=== PATIENT | female | born 1945 | race Two or more races ===

== ENCOUNTER 2018-09-20 05:05 | Day surgery (SDC) | payer MEDICARE, OTHER ==
[~2018-09-20] VITALS: Ht 160 cm; Wt 74.9 kg
--- NOTE | 2018-09-20 05:00 | NUR ---
ADMISSION NOTES: PT CAME TO THE UNIT, AMBULATORY, ACCOMPANIED BY FAMILY. PT FOR DAY SURGERY. ASSISTED TO THE ROOM, CHANGED INTO HOSPITAL GOWN. ORIENTED PT TO UNIT POLICY AND HOURLY ROUNDING, USE OF CALL LIGHT. ALL CONSENT FOR PROCEDURE SIGNED BY PATIENT. ADMISSION INTERVIEW COMPLETED. STARTED IV ACCESS ON LEFT FA USING G 20, PLACED ON HL. VS TAKEN AND RECORDED. MRSA COMPLETED. PT BEEN NPO SINCE MIDNIGHT. PT FOR DIAGNOSTIC AND OPERATIVE ARTHROSCOPY OF RIGHT SHOULDER, ROTATOR CUFF REPAIR, BICEP AND TENODESIS, POSSIBLE ARTHROTOMY BY DR RANI CHEN. SAFETY PRECAUTIONS FOR FALL INITIATED, CALL LIGHT IN REACH, AWAITING SEATING CAPTAIN, SCHED OF SX IS 0630 AM.
[2018-09-20 05:50] VITALS: BP 139/79
[2018-09-20] MEDS ORDERED: ANESTHESIA TRAY IN PYXIS 1 EA TRAY MC ONE (05:56)
[2018-09-20] MEDS ORDERED: EPINEPHRINE (1:1000) 1 MG/ML AMPUL ONE (05:56)
[2018-09-20] MEDS ORDERED: LIDOCAINE HCL/PF 1% 30 ML SDV ONE (05:56)
[2018-09-20 06:01] VITALS: BP 139/79
[2018-09-20] MEDS ORDERED: FENTANYL PF 250MCG/5ML AMPUL ONE (06:06)
[2018-09-20] MEDS ORDERED: METOCLOPRAMIDE HCL 10 MG/2 ML VIAL ONE (06:07)
[2018-09-20] MEDS ORDERED: BUPIVACAINE 0.25% 75 MG/30 ML VIAL ONE (06:08)
[2018-09-20] MEDS ORDERED: FAMOTIDINE/PF INJ 20 MG/2 ML VIAL IV ONE (06:08)
[2018-09-20] MEDS ORDERED: ROCURONIUM BROMIDE 50 MG/5 ML ONE (06:09)
[2018-09-20] MEDS ORDERED: IBUP-1957 PO (06:19)
[2018-09-20] MEDS ORDERED: LISI10TA5 PO (06:19)
[2018-09-20] MEDS ORDERED: BUPR-88 PO (06:19)
[2018-09-20] MEDS ORDERED: CYCL5TAB PO (06:19)
[2018-09-20] MEDS ORDERED: ATOR40TA PO (06:19)
[2018-09-20] MEDS ORDERED: LORA0.5T PO (06:19)
--- NOTE | 2018-09-20 06:21 | NUR ---
RN NOTES: PT WENT TO OR VIA HOSPITAL BED, ACCOMPANIED BY OR STAFF.
--- NOTE | 2018-09-20 06:26 | NUR ---
RN CLOSING NOTES: PT CURRENTLY IN OR. WILL GIVE REPORT TO DY RN FOR CONTINUITY OF CARE.
--- NOTE | 2018-09-20 08:16 | NUR ---
MS RN NOTES PATIENT STILL IN OR.
[2018-09-20] MEDS ORDERED: HYDROCODONE/APAP 5/325MG 1 EACH TABLET PO PRN (10:30)
[2018-09-20] MEDS: HYDROCODONE/APAP 10/325MG 1 EA TABLET PO PRN ×2 (10:36→14:58)
--- NOTE | 2018-09-20 11:00 | NUR ---
MS RN NOTES PATIENT WAS SEEN BY BOUBACAR RUTLEDGE ORDERS TO GIVE MORPHINE 2MG IV [id number] NEEDED AND DISCHARGE PATIENT WHEN PAIN IS CONTROLLED.
[2018-09-20] MEDS ORDERED: MORPHINE SULFATE INJ 2 MG/ML DISP.SYRIN IV PRN (11:30)
[2018-09-20 12:00] VITALS: BP 126/71
[2018-09-20 15:41] VITALS: BP 129/64
--- NOTE | 2018-09-20 15:50 | NUR ---
MS RN NOTES PATIENT DISCHARGED HOME WITH IN STABLE CONDITION. PATIENT ALERT, ORIENTED X3. AMBULATORY. RIGHT ARM IN A SLING. DISCHARGE INSTRUCTIONS PROVIDED TO PATIENT AND . PATIENT ALREADY HAS SCHEDULED APPOINTMENT WITH DR. SARAVIA. AWARE OF ALL ABNORMAL LABS. PATIENT IN FOR SAME DAY SURGERY. PERIPHERAL IV REMOVED, ID BAND REMOVED. PATIENT ALREADY HAS MEDICATIONS PRESCRIBED BY DR. SARAVIA. PATIENT ESCORTED TO CAR BY UROLOGIC NURSE.
== END 2018-09-20 16:00 | disposition home or self-care (01) ==
LOC: DS 05:05 → MED 05:07 → UNDOADMIN 05:07 → UNDODISIN 15:52 → DS 16:00
PROVIDERS: ATTEND Specialist
DX: M75.101 Unspecified rotator cuff tear or rupture of right shoulder, not specified as traumatic (principal); M24.011 Loose body in right shoulder; M65.811 Other synovitis and tenosynovitis, right shoulder; I10 Essential (primary) hypertension; E78.00 Pure hypercholesterolemia, unspecified; F41.9 Anxiety disorder, unspecified; Z79.899 Other long term (current) drug therapy; Z91.018 Allergy to other foods
CPT/HCPCS: 29824; 29827; 29828; 87081; 88304; 88311; A4217; C1713; J0171; J0690; J2270; J2405; J2704; J2710; J2765; J3010; J3490 ×4; G0378

== ENCOUNTER 2020-10-25 10:45 | Outpatient (CLI) | payer MEDICARE, OTHER ==
[~2020-10-25 10:45] MED LIST: ATOR40TA PO; BUPR-78 PO; CYCL5TAB PO; IBUP-1957 PO; LISI10TA29 PO; LORA0.5T PO
== END 2020-10-25 23:59 | disposition home or self-care (01) ==
LOC: LAB 10:45
PROVIDERS: ATTEND Specialist
DX: Z01.812 Encounter for preprocedural laboratory examination (principal); Z20.822 Contact with and (suspected) exposure to COVID-19
CPT/HCPCS: C9803; U0003

== ENCOUNTER 2020-11-01 05:07 | Inpatient (IN) | payer MEDICARE, OTHER ==
[~2020-11-01] VITALS: Ht 165.1 cm; Wt 81.6 kg
[2020-11-01] MEDS ORDERED: BUPIVACAINE 0.5 % PF 150 MG/30 ML VIAL ONE (06:07)
[2020-11-01] MEDS ORDERED: BACITRACIN 50000 UNITS/VIAL ONE (06:07)
[2020-11-01] MEDS ORDERED: ANESTHESIA TRAY IN PYXIS 1 EA TRAY MC ONE (06:07)
[2020-11-01] MEDS ORDERED: HYDROMORPHONE INJ 2 MG/ML DISP.SYRIN ONE (06:33)
[2020-11-01] MEDS ORDERED: FENTANYL PF 100MCG/2ML AMPUL ONE (06:33)
[2020-11-01] MEDS ORDERED: ROCURONIUM BROMIDE 50 MG/5 ML ONE ×2 (06:34→07:47)
[2020-11-01] MEDS ORDERED: TRANEXAMIC ACID 3,000 MG in SODIUM CHLORIDE IRRIG SOLUTION 70 ML IR ONE (07:00)
[2020-11-01] MEDS ORDERED: DESFLURANE 240 ML BOTTLE IH ONE (08:16)
[2020-11-01] MEDS ORDERED: SEVOFLURANE 250 ML BOTTLE IH ONE (08:16)
[2020-11-01] MEDS ORDERED: BUPIVACAINE 0.25% 75 MG/30 ML VIAL ONE (08:47)
[2020-11-01] MEDS ORDERED: BISACODYL SUPP (10 MG) 10 MG/SUPP.RECT SUPP.RECT RC PRN (09:00)
[2020-11-01] MEDS ORDERED: ACETAMINOPHEN 325 MG TABLET PO PRN (09:00)
[2020-11-01] MEDS ORDERED: HYDROCODONE/APAP 5/325MG TABLET PO PRN (09:00)
[2020-11-01] MEDS ORDERED: SENNOSIDES 8.6 MG TABLET PO PRN (09:00)
[2020-11-01] MEDS ORDERED: DOCUSATE SODIUM 250 MG CAPSULE PO PRN (09:00)
[2020-11-01] MEDS ORDERED: ONDANSETRON HCL/PF 4 MG/2 ML VIAL IV PRN ×2 (09:30→11:00)
[2020-11-01] MEDS ORDERED: ZOLPIDEM TARTRATE 5 MG TABLET PO PRN (09:30)
[2020-11-01] MEDS ORDERED: IV D5/0.45 NACL 1,000 ML IV PRN (09:30)
[2020-11-01] MEDS ORDERED: LORAZEPAM 1 MG TABLET PO ONE (10:37)
[2020-11-01] MEDS ORDERED: MAGNESIUM HYDROXIDE 30 ML UDC PO PRN (11:00)
[2020-11-01] MEDS ORDERED: MORPHINE SULFATE INJ 4 MG/ML DISP.SYRIN IM PRN ×2 (11:00)
[2020-11-01] MEDS ORDERED: CLONIDINE HCL 0.1 MG TABLET PO PRN (11:00)
[2020-11-01] MEDS ORDERED: oxyCODONE IR immediate release 5 MG PO PRN (11:00)
[2020-11-01] MEDS ORDERED: CYCLOBENZAPRINE 10 MG TABLET PO PRN (11:00)
[2020-11-01] MEDS ORDERED: MAG HYDROX/AL HYDROX/SIMETH 30 ML UDC PO PRN (11:00)
[2020-11-01] MEDS ORDERED: LORAZEPAM 1 MG TABLET PO PRN (11:00)
[2020-11-01] MEDS ORDERED: diphenhydrAMINE HCL 25 MG CAPSULE PO PRN (11:00)
--- NOTE | 2020-11-01 11:00 | NUR ---
RN OPENING NOTE PATIENT AWAKE IN BED. A/O X3 AND SPEAKING SOME IRANIAN. NO COMPLAINT OF PAIN OR NAUSEA. CURRENTLY ON 2L O2 VIA NC. NO SOB OR RESPIRATORY DISTRESS PRESENT. V/S STABLE. R SHOULDER INCISION PRESENT. NO EDEMA PRESENT. SELF AMBULATORY WITH BATHROOM PRIVILEGES. HL PRESENT ON L FA 22G AND FLUSHES WELL. SAFETY MEASURES IN PLACE. SIDE RAILS RAISED. BED LOWERED. CALL LIGHT WITHIN REACH. WILL CONTINUE TO MONITOR.
[2020-11-01] MEDS: buPROPion SR 150 MG TABLET.ER PO SCH (11:21)
[2020-11-01 12:00] VITALS: BP 124/71
[2020-11-01] MEDS ORDERED: LORA-259 PO (14:12)
[2020-11-01] MEDS ORDERED: GLIP10TA11 PO (14:12)
[2020-11-01] MEDS ORDERED: ATOR40TA PO (14:12)
[2020-11-01] MEDS: oxyCODONE IR immediate release 5 MG PO PRN ×3 (14:20→23:00)
[2020-11-01] MEDS: ANCEF 1 GM/50 ML D5W IV SCH ×2 (14:23→22:48)
[2020-11-01 16:00] VITALS: BP 109/63
[2020-11-01] MEDS: DOCUSATE SODIUM 100 MG CAPSULE PO SCH (16:46)
[2020-11-01] MEDS ORDERED: oxyCODONE IR immediate release 5 MG PO ONE (17:30)
--- NOTE | 2020-11-01 18:28 | NUR ---
RN CLOSING NOTE PATIENT AWAKE IN BED. A/O X3 AND SPEAKING SOME SUDANESE. NO COMPLAINT OF PAIN OR NAUSEA. CURRENTLY ON 2L O2 VIA NC. NO SOB OR RESPIRATORY DISTRESS PRESENT. V/S STABLE. R SHOULDER INCISION PRESENT. NO EDEMA PRESENT. SELF AMBULATORY WITH BATHROOM PRIVILEGES. HL PRESENT ON L FA 22G AND FLUSHES WELL. ROUTINE MEDS GIVEN SAFETY MEASURES IN PLACE. SIDE RAILS RAISED. BED LOWERED. CALL LIGHT WITHIN REACH. REPORT TO BE GIVEN TO NIGHT NURSE FOR MARCO ANTONIO.
--- NOTE | 2020-11-01 18:29 | NUR ---
RN NOTE PATIENT TAKEN OFF OF 2L NC. NO SOB OR RESPIRATORY DISTRESS PRESENT. O2 SAT OF 99%. WILL CONTINUE TO MONITOR.
--- NOTE | 2020-11-01 19:45 | NUR ---
MS RN NOTES PATIENT IN BED A/O X4. ABLE TO MAKE NEEDS KNOWN. L. FA RUNNING D5W 1/2 NS@ 125 ML/HR. NO S/S OF DISTRESS. NO C/O OF PAIN AT THE MOMENT. SAFETY IN PLACE: BED IN LOWEST, LOCKED POSITION; CALL LIGHT WITHIN REACH. BOARD UPDATED. WILL CONTINUE TO MONITOR.
[2020-11-01 20:00] VITALS: BP 118/52
[2020-11-01] MEDS: FAMOTIDINE (20 MG) 20 MG TABLET PO SCH (20:40)
--- NOTE | 2020-11-01 23:00 | NUR ---
MS RN NOTES PATIENT C/O 6/10 PAIN IN R. SHOULDER VIA ADULT PAIN SCALE. GIVEN OXYCODONE 10 MG PRN. WILL REASSESS.
[2020-11-01 23:37] VITALS: BP 118/52
--- NOTE | 2020-11-02 05:07 | NUR ---
MS RN NOTES PATIENT REPORTS 9/10 PAIN. GIVEN IM MORPHINE 3MG PRN. WILL REASSESS.
[2020-11-02] MEDS ORDERED: oxyCODONE IR immediate release 5 MG PO ONE (05:58)
--- NOTE | 2020-11-02 06:18 | NUR ---
RN NOTES PATIENT GIVEN OXYCODONE 10MG BY DR. BEARD'S ORDER. WILL REASSESS.
--- NOTE | 2020-11-02 06:57 | NUR ---
RN CLOSING NOTES PATIENT IN BED. A/0X4 BUT EPISODES OF FORGETFULNESS. NO S/S OF DISTRESS. ABLE TO MAKE NEEDS KNOWN. ALL NEEDS ATTENDED. ALL SCHEDULED MEDS ADMINISTERED. RIGHT SHOULDER SLING IN PLACE. SAFETY KEPT IN PLACE THE WHOLE TIME: BED IN LOWEST, LOCKED POSITION; CALL LIGHT WITHIN REACH. NO SIGNIFICANT CHANGE SINCE LAST SHIFT. PATIENT D/C TODAY. DR. BEARD SAW PATIENT AND PUT IN A NEW PRESCRIPTION IN CHART. PER DR. BEARD IT IS OKAY TO DISCHARGED PATIENT WITHOUT HOSPITALIST SEEING THE PATIENT. CHARGE NURSE AWARE AND NOTIFIED BY DOCTOR WELL. WILL ENDORSE CARE TO MORNING SHIFT NURSE.
--- NOTE | 2020-11-02 07:50 | NUR ---
m/s stock preparation supervisor: md visit pt for dc planning home today. per dr. xiao, dr. cardenas needs to do the h&p, but i will the pt and wait what he says. seen and examined by dr. xiao at this time.
[2020-11-02 08:00] VITALS: BP 100/58
[2020-11-02] MEDS: buPROPion SR 150 MG TABLET.ER PO SCH (08:42)
[2020-11-02] MEDS: FAMOTIDINE (20 MG) 20 MG TABLET PO SCH (08:42)
[2020-11-02] MEDS: DOCUSATE SODIUM 100 MG CAPSULE PO SCH (08:42)
--- NOTE | 2020-11-02 08:45 | NUR ---
m/s director ship: ortho f/u seen by kashif oliveros) with verbal order to okay for discharge home today per cn.
--- NOTE | 2020-11-02 08:50 | NUR ---
m/s tube man: notes dr. cardenas on the phone and says okay to discharge the pt. cn aware.
[2020-11-02] MEDS ORDERED: ASPIRIN 325 MG TABLET PO SCH (09:00)
--- NOTE | 2020-11-02 09:00 | NUR ---
m/s roll cutting operator: notes dr. xiao notified and informed him that per dr. cardenas, he never told the nurse about no need for hospitalist see her.
--- NOTE | 2020-11-02 09:47 | NUR ---
m/s log grader: notes f/u lab re: stat cbc and bmp ordered earlier, spoke to caroline and says that they will draw the blood. received discharge order from dr. xiao. order acknowledged.
[2020-11-02] MEDS: oxyCODONE IR immediate release 5 MG PO PRN (10:08)
--- NOTE | 2020-11-02 10:08 | NUR ---
m/s hat brim and crown laminating operator: notes c/o 12/06 right shoulder pain, medicated with oxy ir 10mg po as ordered. lab drawn. for d'c home today. nazia (boyfriend) called and will pick her up. pt made aware.
[2020-11-02 10:31] LABS: BASOPHILS % (AUTO) 0.2 % (0.0-2.0); EOSINOPHILS % (AUTO) 0.4 % (0.0-6.0); HEMATOCRIT 36 % (33-45); HEMOGLOBIN 11.8 g/dL (11.5-14.8); LYMPHOCYTES # (AUTO) 4.5 /CMM (0.8-4.8); LYMPHOCYTES % (AUTO) 43.8 % (20.0-44.0); MEAN CORPUSCULAR HGB CONC 33 g/dl (31.0-36.0); MEAN CORPUSCULAR VOLUME 95 fL (82-100); MONOCYTES # (AUTO) 0.8 /CMM (0.1-1.30); MONOCYTES % (AUTO) 7.7 % (2.0-12.0); NEUTROPHILS # (AUTO) 4.9 /CMM (1.8-8.9); NEUTROPHILS % (AUTO) 47.9 % (43.0-81.0); PLATELET COUNT (AUTO) 182 /CMM (150-450); RED BLOOD CELL COUNT(AUTO) 3.79 MIL/uL (4.0-5.2); WHITE BLOOD COUNT (AUTO) 10.2 K/uL (4.3-11.0)
[2020-11-02 10:50] LABS: CALCIUM, SERUM 8.3 mg/dL (8.5-10.1); CREATININE 0.8 mg/dL (0.6-1.3); POTASSIUM 4.2 mmol/L (3.5-5.1)
--- NOTE | 2020-11-02 11:08 | NUR ---
m/s punch operator: notes discharged instructions with prescription given to pt and verbalized understanding. sling remains in place with surgical dressing to right shoulder intact, clean, and dry. voiced no discomfort. awaiting for nazia (boyfriend) to pick her up.
--- NOTE | 2020-11-02 11:50 | NUR ---
m/s farebox repairer: notes nazia (boyfriend) called and will wait in the parking lot by the e.r. pt made aware. h/l removed with tip intact. all valuables returned to pt. will continue to monitor.
--- NOTE | 2020-11-02 11:55 | NUR ---
m/s line operator: discharge discharge home in stable condition with right sling in place accompanied by nazia (boyfriend) with valuables and d'c papers with prescription.
== END 2020-11-02 12:00 | disposition home or self-care (01) | DRG 483 ==
LOC: DS 05:07 → MED 10:18
PROVIDERS: ADMIT Family Medicine; ATTEND Family Medicine
PROC: 0RRJ00Z Replacement of Right Shoulder Joint with Reverse Ball and Socket Synthetic Substitute, Open Approach (ICD-10-PCS; principal; 2020-11-01)
PROC: 0LS30ZZ Reposition Right Upper Arm Tendon, Open Approach (ICD-10-PCS; 2020-11-01)
DX: M12.511 Traumatic arthropathy, right shoulder (principal); I10 Essential (primary) hypertension; E78.5 Hyperlipidemia, unspecified; F32.9 Major depressive disorder, single episode, unspecified; F41.9 Anxiety disorder, unspecified; Z83.3 Family history of diabetes mellitus; Z87.891 Personal history of nicotine dependence; M50.30 Other cervical disc degeneration, unspecified cervical region; Z82.49 Family history of ischemic heart disease and other diseases of the circulatory system; Z68.30 Body mass index [BMI] 30.0-30.9, adult; E66.9 Obesity, unspecified; Z20.822 Contact with and (suspected) exposure to COVID-19; Z79.84 Long term (current) use of oral hypoglycemic drugs; Z79.899 Other long term (current) drug therapy; E11.65 Type 2 diabetes mellitus with hyperglycemia; T14.90XS Injury, unspecified, sequela; X58.XXXS Exposure to other specified factors, sequela
CPT/HCPCS: 36415; 80048-TC; 82962-TC; 85025-TC; 86850-TC; 87081-TC; 88305-TC; 88311-TC; A4565; A6209; C1776; G0378; J0690; J1100; J1170; J1885; J2270; J2405; J2704; J3010; J3490; J7060